=== PATIENT | male | born 1950 | race Caucasian/White ===

== ENCOUNTER → 2017-07-04 | Outpatient (CLI) | payer MEDICARE, OTHER ==
[~2017-07-04] MED LIST: ATENOLOL 100 MG TAB PO ONE; IOHEXOL 100 ML ONE; IOHEXOL 350MG/ML 50 ML BTL ONE; LEVO500T72 PO; METOPROLOL 100 MG TAB ONE; NITROGLYCERIN AEROSOL (4.9 GM) ONE; SOD CHLORIDE 0.9% 100 ML ONE; TAMS-14 PO
[2017-07-04 09:27] LABS: CREATININE 0.89 mg/dl (0.61-1.24)
--- NOTE | 2017-07-04 14:59 | RADRPT ---
PROCEDURE: CTA of the heart and coronary arteries. CLINICAL INDICATION: Chest pain, shortness of breath COMPARISON: No previous relevant images are available for comparison. TECHNIQUE: Multiphasic ECG-gated volumetric acquisition from the ascending aorta to the diaphragm pe rformed with intravenous contrast on a high-resolution multi detector scanner with multiphasic recon structions. Multiplanar reconstructions, three-dimensional reconstructions, as well as maximal inten sity projection images are produced and reviewed. One or more of the following dose reduction techni ques were used: Automated exposure control; Adjustment of the mA and/or kV according to patient size ; Use of iterative reconstruction technique; ECG dose modulation. CTDI = 8, 44, 83 mGy. DLP = 2515 m Gy-cm. Stenosis classification of vessels greater than 1.5 mm in diameter: None 0%, Minimal 1-24%, Mild 25- 49%, Moderate 50-69%, Severe 70-99%, Occluded 100% CONTRAST: 100 mL of Omnipaque 350 intravenously without adverse event. FINDINGS: Overall exam quality and angiographic enhancement: Excellent angiographic enhancement. Examination p artially degraded due to respiratory motion artifact. Origins and course of the coronary arteries: Normal. Coronary artery system dominance pattern: Right. Total calcium score: 155.6 Not fully diagnostic segments due to artifacts: None. RCA: Small calcified plaque in the proximal segment of vessel does not produce any stenosis. Mid and distal segments are widely patent. PLB: Patent with no evidence of plaque. PDA: Small-caliber vessel is not well visualized. LM: Patent with no evidence of plaque. RI: Patent with no evidence of plaque. LAD: Small calcified and noncalcified plaques in the proximal segment of vessel produce less than 20 % stenosis. Mid and distal segments of the vessel are widely patent. Diags: Patent with no evidence of plaque. LCX: Patent with no evidence of plaque. OMs: Patent with no evidence of plaque. Pericardium: Normal. Pericardial effusion: None. Heart size: Normal. Aortic valve: Trileaflet morphology. Normal systolic excursion. Normal diastolic coaptation. No evid ence of thickening or calcification. Mitral valve: Normal morphology. No evidence of prolapse on systolic images. No evidence of thickeni ng or calcification. Myocardial attenuation: Normal. No abnormal areas of thickening or thinning. Intracardiac enhancement: No left-sided filling defects to suggest the presence of mass or thrombus . Left atrial appendage is well opacified. Extracardiac findings: Visualized thoracic aorta: Mild dilatation of the sinuses of Valsalva measuring maximally 4.4 cm. Mi ld dilatation of the mid ascending segment of the aorta measuring 4.0 cm. Minimal atherosclerotic ch anges are present. Pulmonary arteries: Normal caliber. No evidence of central filling defect. Pulmonary veins: Conventional pulmonary venous return. Lungs: Mild paraseptal emphysematous changes are present. Mild peribronchial thickening suggestive o f chronic small airways disease. No suspicious pulmonary nodules. Visualized mediastinum: No mass or fluid collection. No lymphadenopathy. Visualized osseous structures: Normal. Visualized upper abdomen: Low attenuation changes in the liver are present most compatible with hep atic steatosis. Other findings: None. IMPRESSION: Total calcium score: 155.6 Not fully diagnostic segments due to artifacts: None. RCA: Small calcified plaque in the proximal segment of vessel does not produce any stenosis. Mid and distal segments are widely patent. PLB: Patent with no evidence of plaque. PDA: Small-caliber vessel is not well visualized. LM: Patent with no evidence of plaque. RI: Patent with no evidence of plaque. LAD: Small calcified and noncalcified plaques in the proximal segment of vessel produce less than 20 % stenosis. Mid and distal segments of the vessel are widely patent. Diags: Patent with no evidence of plaque. LCX: Patent with no evidence of plaque. OMs: Patent with no evidence of plaque. Mild dilatation of the sinuses of Valsalva measuring maximally 4.4 cm. Mild dilatation of the mid as cending segment of the aorta measuring 4.0 cm. Mild paraseptal emphysematous changes are present. Mild peribronchial thickening suggestive of chron ic small airways disease. RPTAT: AADD Reference images are provided at [email or web address] .Mohsen Torres MD, Date Time Electronically viewed and signed by .Mohsen Torres MD, on 07/04/2017 14:59 .B/
== END | disposition home or self-care (01) ==
LOC: LAB 08:35
PROVIDERS: ATTEND Internal Medicine Interventional Cardiology
DX: R06.02 Shortness of breath (principal)
CPT/HCPCS: 75571; 75574; 82565; 84520; Q9967